=== PATIENT | male | born 1970 | race Asian ===

== ENCOUNTER 2017-09-18 14:23 | Emergency (ER) | payer MEDICAID ==
[~2017-09-18] VITALS: Ht 182.9 cm; Wt 82.1 kg
[2017-09-18 15:00] LABS: MICROSCOPIC NOT IND
[2017-09-18 15:04] LABS: CULTURE INDICATED? NO
[2017-09-18 17:03] VITALS: BP 129/78
== END 2017-09-18 17:05 | disposition home or self-care (01) ==
LOC: ED 16:41
DX: R31.0 Gross hematuria (principal); N43.3 Hydrocele, unspecified; J45.909 Unspecified asthma, uncomplicated
CPT/HCPCS: 76870; 81003; 99285